=== PATIENT | male | born 1975 | race Caucasian/White ===

== ENCOUNTER → 2019-08-09 10:31 | Outpatient (CLI) | payer OTHER, SELFPAY ==
--- NOTE | ~2019-08-09 | US_ITS ---
US thyroid INDICATION: Possible thyroid nodule. Thyroiditis. TECHNIQUE: Real-time sonographic images of the thyroid gland were obtained. COMPARISON: No prior studies for comparison. FINDINGS: The right thyroid lobe measures 4.4 x 1.8 x 1.5 cm. The left thyroid lobe measures 3.9 x 1 .3 x 1 cm. There is heterogeneous echotexture and echogenicity throughout the thyroid gland. No discr ete nodules identified. Normal vascular flow is present. IMPRESSION: 1. Heterogeneous thyroid gland. No discrete mass. Reviewed, dictated and finalized at location B. [employer]
== END ==
PROVIDERS: PCP Internal Medicine; Visit Provider Internal Medicine
DX: E04.1 Nontoxic single thyroid nodule (principal)
CPT/HCPCS: 76536

== ENCOUNTER 2019-11-01 10:45 | Outpatient (CLI) | payer OTHER, SELFPAY ==
--- NOTE | ~2019-11-01 | XR_ITS ---
XR thoracic spine 3V 11/01/2019 11:10 Indication: Right flank pain Procedure: 3 views thoracic spine Comparison: No prior studies for comparison. Findings: Vertebral body heights are maintained. No fracture or traumatic malalignment. No paraspinal soft tissue abnormality. Vertebral body heights are maintained. No paraspinal soft tissue abnormalit y. Lung parenchyma is unremarkable. There is diffuse idiopathic skeletal hyperostosis (DISH) of the t horacic spine. Impression: 1: No acute abnormality of the thoracic spine. Reviewed, dictated and finalized at location A. Impression: 1: No acute abnormality of the thoracic spine.
== END 2019-11-01 10:46 | disposition home or self-care (01) ==
PROVIDERS: PCP Internal Medicine; Visit Provider Internal Medicine
DX: M54.14 Radiculopathy, thoracic region (principal)
CPT/HCPCS: 72072

== ENCOUNTER 2019-12-16 06:55 | Outpatient (CLI) | payer OTHER, SELFPAY ==
--- NOTE | ~2019-12-16 | MR_ITS ---
EXAMINATION: MR thoracic spine wo con DATE: 12/16/2019 08:28 INDICATION: Thoracic back pain. TECHNIQUE: Magnetic resonance imaging (MRI) of the thoracic spine was performed without intravenous c ontrast. Sagittal localizer T1-weighted FSE of the cervical spine was obtained. Thoracic spine sequen rober included sagittal T2-weighted FSE, sagittal T1-weighted FSE, sagittal STIR FSE, and axial T2-weig hted FSE. COMPARISON: Thoracic spine radiographs 11/01/2019 FINDINGS: Bone alignment is normal. Vertebral body heights are normal. There are hemangiomas in T2 an d T5 vertebral bodies. Intervertebral disc heights are normal. There are endplate osteophytes at many levels. At T1-T2, there is a central extrusion with mild central canal stenosis. There is multilevel mild facet joint osteoarthritis. No neural foraminal stenosis. The spinal cord signal intensity is n ormal. Partially visualized are cysts in the kidneys. IMPRESSION: 1. Mild thoracic spondylosis. Reviewed, dictated and finalized at location A.
== END 2019-12-16 06:56 | disposition home or self-care (01) ==
PROVIDERS: PCP Internal Medicine; Visit Provider Nurse Practitioner Family
DX: M47.894 Other spondylosis, thoracic region (principal)
CPT/HCPCS: 72146

== ENCOUNTER 2021-12-17 07:59 | Outpatient (CLI) | payer OTHER, SELFPAY ==
--- NOTE | ~2021-12-17 | MR_ITS ---
EXAMINATION: MR shoulder RT wo con DATE: 12/17/2021 08:38 INDICATION: Right shoulder pain and decreased range of motion TECHNIQUE: Magnetic resonance imaging (MRI) of the right shoulder was performed without intravenous c ontrast. Sequences included axial PD-weighted FS FSE, coronal oblique PD-weighted FS FSE, coronal obl ique T2-weighted FS FSE, sagittal PD-weighted FS FSE, and sagittal T1-weighted SE. COMPARISON: None. FINDINGS: Coracoacromial arch: The acromion undersurface is flat in morphology (type I). A small anterior subacromial spur at the in sertion of the coracohumeral ligament which appears mildly thickened. Mild acromioclavicular osteoart hritis. Rotator cuff: Thickening and mild increased signal of the distal 2-3 cm of the supraspinatus and infraspinatus tend ons consistent with moderate tendinopathy. The coracoacromial ligament appears to exert minimal mass effect upon the bursal side of the distal supraspinatus muscle belly along the medial margin of the r egion of tendinopathy where there is a small region of shallow bursal sided fraying. The teres minor tendon is normal. Mild subscapularis tendinopathy with small intrasubstance linear longitudinal split tear extending approximately 1 cm from the lesser tuberosity footplate between the fibers of the inf erior and middle thirds of the tendon. Normal rotator cuff muscle bulk and signal. Biceps tendon, glenoid labrum and glenohumeral cartilage: Mild tendinopathy without discrete tear of the intra-articular portion of the long head biceps tendon . There is a superior, anterior to posterior tear of the glenoid labrum (SLAP tear) at the 10:00-12:0 0 position of the posterior superior glenoid labrum. Mild nonuniform partial thickness cartilage loss with smooth chondral surface and without degenerative subchondral changes along portions of the tariq oid and humeral head. Fluid: Physiologic amount of fluid in the glenohumeral joint and biceps tendon sheath. No loose osteochondr al bodies. Small amount of fluid in the subacromial/subdeltoid bursa consistent with mild bursitis. Bones: Normal marrow signal with no edema, fracture or abnormal marrow replacing process. IMPRESSION: 1. Moderate supraspinatus and infraspinatus tendinopathy with small region of shallow bursal sided fr aying along the distal myotendinous junction of the supraspinatus tendon suspicious for subacromial i mpingement. 2. Mild subacromial/subdeltoid bursitis. 3. Mild subscapularis tendinopathy with small mild intrasubstance split tear. 4. Mild glenohumeral osteoarthritis with SLAP tear at the posterior superior glenoid labrum. 5. Mild tendinopathy of the intra-articular long head biceps tendon. Reviewed, dictated and finalized at location B. IMPRESSION: 1. Moderate supraspinatus and infraspinatus tendinopathy with small region of s hallow bursal sided fraying along the distal myotendinous junction of the supra spinatus tendon suspicious for subacromial impingement. 2. Mild subacromial/subdeltoid bursitis. 3. Mild subscapularis tendinopathy with small mild intrasubstance split tear. 4. Mild glenohumeral osteoarthritis with SLAP tear at the posterior superior gl enoid labrum. 5. Mild tendinopathy of the intra-articular long head biceps tendon.
== END 2021-12-17 08:00 | disposition home or self-care (01) ==
PROVIDERS: PCP Internal Medicine; Visit Provider Nurse Practitioner Family
DX: M19.011 Primary osteoarthritis, right shoulder (principal); M75.51 Bursitis of right shoulder; S43.431A Superior glenoid labrum lesion of right shoulder, initial encounter; X58.XXXA Exposure to other specified factors, initial encounter
CPT/HCPCS: 73221

== ENCOUNTER 2022-06-23 01:00 | Day surgery (SDC) | payer OTHER, SELFPAY ==
[2022-06-11 11:12] VITALS: BMI 36.3
--- NOTE | 2022-06-11 11:39 | PC.NURSE ---
Report to the Outpatient Waiting Room, entrance under the green pavilion located off [facility], at 0830 on 06-23-22. Planned Procedure Time: 1030. Time changes happen often and if your time is changed the preop area will call you the afternoon before. - You and your visitor will be asked to self-screen and do not enter if you have any COVID symptoms. - Only one visitor is requested with a max of two and NO children visitors are allowed at this time. - The patient visitor may be requested to leave or wait in car when not with patient due to distancing restrictions. - A mask is required within the hospital. Patients may have clear liquids (water, carbonated beverages, clear teas, apple juice) until 3 hours prior to surgery with a maximum of 20 ounces. 0730 - No food from midnight until time of surgery - Infants may have breast milk until 4 hours before surgery, infant formula 6 hours prior to surgery. - Children will be allowed to drink immediately following surgery. If applicable, please bring a bottle or sippy cup to assist with drinking. Juice, water, soda, and popsicles are readily available. For infants on formula, please bring formula the day of surgery. Pacifiers are allowed. Take the following medications with a SIP of water the morning of surgery: Trintellix, lamotrigine, levothryroxine Medications to discontinue per physician: Vitamins and supplements Date to take last dose: 06-20-22 Please no make-up, nail danish, hairspray, perfume, deodorant, or body powder the day of surgery. No jewelry (including any body piercings) or valuables the day of surgery, leave them at home. Please take a shower or bath the night before, or the morning of, surgery with an antibacterial soap. Wear comfortable, loose fitting clothing. (A button down shirt is recommended). Children are encouraged to wear pajamas. - Jewelry must be removed prior to entering the operating room. Rings and piercings that are not removed may be cut off. - The hospital will not accept responsibility for valuables. - Please leave all valuables, including medications, at home the day of surgery. If you are going home after surgery, a licensed log truck driver must drive you home. - NO public transportation without another adult if you receive anesthesia. - We recommend that an adult stay with you for 24 hours following discharge. - We also recommend that you do not drive, make important decision, drink alcoholic beverages, or take any drugs that were not prescribed by your health care provider for at least 24 hours after your discharge time. For Pediatric surgeries, we recommend two adults accompany the child home. Follow any additional instructions given to you from your surgeon. If you or anyone in your household have experienced Covid symptoms in the past week, please notify your surgeon or the nurse liaison at the phone number below for possible testing. Telephone instructions given to Yosvany Poon and asked if any additional questions and then verbalized understanding. Patient advised to call surgeon office or pre surgery nurse liaison [phone] if any additional questions.
[2022-06-23] VITALS (8 sets, daily range): BP systolic 118–146; BP diastolic 72–100; PULSE 60–68; RESP 12–18; TEMP 36.4–36.9; O2SAT 93–100
[2022-06-23] MEDS: ACETAMINOPHEN 500 MG TABLET 1000 MG PO (08:16)
[2022-06-23] MEDS: LACTATED RINGERS 1,000 ML 30 ML IV CONT ×2 (08:35→12:00)
[2022-06-23] MEDS: KETOROLAC 15 MG/ML VIAL (*BKC) IV PUSH (08:38)
--- NOTE | 2022-06-23 09:35 | WPDANESEPPF ---
Anes - Initial Pre Proc Eval Procedure: Operation Date: 06/23/22 10:30 Proposed Procedures p Right Shoulder Acromioplasty, Distal Clavicle Excision - Robert Wright MD Date/Time: 06/23/22 09:35 Surgeon: Robert Wright MD Pre Op Diagnosis: right AC arthritis and impingement Patient Data Age: 47 Gender: M Height: 1.85 m Weight: 129.4 kg Last Vital Signs Temp 36.9 C 06/23/22 08:21 Pulse 64 06/23/22 08:21 Resp 16 06/23/22 08:21 BP 129/80 06/23/22 08:21 Pulse Ox 99 06/23/22 08:21 O2 Del Method Room Air 06/23/22 08:21 Allergies Allergy/AdvReac Type Severity Reaction Status Date / Time No Known Allergies Allergy Verified 06/23/22 08:11 Home Medications Medication Instructions Recorded Confirmed Type levothyroxine 137 mcg capsule 137 mcg PO DAILY 01/15/22 06/18/22 History vortioxetine 20 mg tablet 20 mg PO DAILY 01/15/22 06/18/22 History (Trintellix) aripiprazole 2 mg tablet 2 mg PO HS 06/11/22 06/18/22 History cholecalciferol (vitamin D3) 125 125 mcg PO DAILY 06/11/22 06/18/22 History mcg (5,000 unit) tablet (Vitamin D3) multivit with minerals-iron 18 1 tablet PO DAILY 06/11/22 06/18/22 History mg-folic ac 400 mcg-vit K 25 mcg tablet (Adults Multivitamin) [id number]-other [id number] 1 cap PO DAILY 06/11/22 06/18/22 History oil 350 mg- 400 mg capsule risankizumab-rzaa 150 mg/mL 150 mg subcut [id number] 06/11/22 06/18/22 History subcutaneous pen injector (Skyrizi) vitamin B complex 1 tablet PO DAILY 06/11/22 06/18/22 History Patient hx anesthesia problems: none Family hx anesthesia problems: none Results Review: All pre-operative results and documents have been reviewed as part of the pre-operative evaluation. 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 impingement of right shoulder Surgical History Surgical History History of tonsillectomy Family History Family History Other Breast cancer Depression Diabetes mellitus Fibromyalgia Lupus Psoriasis Sjogrens syndrome Thyroid disorder Vertigo Social History Social History Smoking status: Never smoker Second hand tobacco smoke exposure: No Alcohol intake: current Alcohol use details: occasionally Substance use: current Substance use type: marijuana Living arrangements: with family Gender identity (if verbalized by the patient): Male Spiritual care concerns: No Anes - Eval Final PreProcedure Day of Procedure 06/23/22 09:35 Patient weight: obese Heart: regular rate and rhythm Lungs: clear to auscultation Airway: Mallampati scale class II Neurological: alert and oriented Last oral intake: >/= 8 hours ASA classification: III Emergent: no Anesthetic plan: proceed Anesthesia type and monitoring: general ETT and standard monitoring Results Review: All pre-operative results and documents have been reviewed as part of the pre-operative evaluation. Informed Consent: The patient's anesthetic plan and its attendant risks and benefits were discussed with the patient/family/POA. Questions were solicited and answers provided to the satisfaction of the patient/family/POA.
--- NOTE | 2022-06-23 10:00 | WPDHPUPDATE1 ---
History and Physical Update Update Date/Time: 06/23/22 10:00 History and Physical has been reviewed, including an updated exam of the patient. There are NO changes in the patient's condition. Risks, benefits, and alternatives have been discussed and questions answered. Patient agrees to proceed with procedure.
[2022-06-23] MEDS: ceFAZolin 3 GM/D5W 100 ML 100 ML IVPB (10:45)
--- NOTE | 2022-06-23 10:49 | WPDANESPNB ---
Anes - Peripheral Nerve Block Date/Time: 06/23/22 10:49 I have discussed with the patient/family/POA the placement of a peripheral nerve block for post-operative pain management, including associated risks, benefits, complications, and side effects. Alternative methods of post-operative analgesia were detailed. Questions were solicited and answers provided to the satisfaction of the patient/family/POA. Time-Out: A pre-procedural Time-Out was completed immediately before starting the procedure and confirmed: Patient Identification, Site, Procedure, Patient Position and the Availability of Requisite Equipment. Clinical Indications: Acute post-operative pain management requested by the operative surgeon. Nerve Block Insertion Note Anes-nerve block: interscalene right Patient position: supine Skin prep: chlorhexidine Needle: 22 gauge, stimulating, insulated echogenic needle. Needle length: 50 mm Technique: ultrasound Injectate: bupivacaine 0.5% with epi 5 mcg/ml (30cc- no epi) Observations: tolerated well Complications: none Procedure start time:: 1023 Procedure end time:: 102
[2022-06-23] MEDS: BUPIVACAINE/EPINEPHRINE 0.5% 10 ML VIAL INFILTRATE (11:18)
--- NOTE | 2022-06-23 11:57 | P.OP_ITS ---
Procedure Note - Detailed Date of Procedure 06/23/22 Pre-op Diagnosis right AC arthritis and impingement Post-op Diagnosis Same Procedure Performed Right shoulder acromioplasty with distal clavicle excision. Debridement rotator cuff. Surgeon Robert Wright MD [employer] Anesthesia General and Regional Description of Procedure Patient was identified and proper site identified. In the preop holding area the anesthesia team performed a right upper extremity block. He was then taken to the operating room and transferred to the or table taking care to pad the torso and extremities. After general anesthetic induction and intubation, he was put in a semi beach chair position in the usual manner for a right shoulder procedure. His head was secured taking care to neither rotate nor extend the head and neck. The right upper extremity was prepped and draped free in usual s terile fashion. The subcutaneous tissue in the area of the incision was injected with 10 cc of 0.25% Marcaine and epinephrine solution. An oblique anterior incision was made extending from the AC joint distally in line with the fibers of the deltoid. Subcutaneous tissue was sharply dissected down to the deltoid fascia. The deltoid was dissected off the anterior portion of the acromion in the distal end of the clavicle. A 2 cm split was made at the junction between the anterior and middle thirds of the deltoid. Using the microsagittal saw the last 8 mm of clavicle removed. The saw was also used to perform the acromioplasty and then the undersurface of the acromion was rasped smooth. there was an abundance of really thickened bursa overlying the rotator cuff which was sharply debrided allowing for assessment of the cuff. There was hyperemia along the greater tuberosity in no erosive tearing appreciated in the cuff. The wound was irrigated with sterile NaCl solution. The deltoid was repaired back to the acromion with 2. Ethibond suture passed through bone and the remainder of the deltoid repair carried out with 2. Vicryl. Subcutaneous tissue was reapproximated with 2. Strata fix and then tissue adhesive used for the skin. Sterile dressing was applied. There were no known intraoperative complications, and perioperative antibiotics were administered. Estimated Blood Loss 50 Drains No Packing No Pathology None sent Complications No immediate complications Condition Stable Disposition PACU [facility] Billing Surgery - Charge Forward: Surgery Billing ([id number], [id number])
== END 2022-06-23 13:56 | disposition home or self-care (01) ==
PROVIDERS: PCP Internal Medicine; Visit Provider Orthopaedic Surgery
PROC: (CPT 23420; principal; 2022-06-23 10:30)
DX: M19.011 Primary osteoarthritis, right shoulder (principal); M75.41 Impingement syndrome of right shoulder; G89.18 Other acute postprocedural pain; E06.3 Autoimmune thyroiditis; L40.9 Psoriasis, unspecified; E66.9 Obesity, unspecified; Z68.37 Body mass index [BMI] 37.0-37.9, adult; F12.90 Cannabis use, unspecified, uncomplicated
CPT/HCPCS: 23130; 23120; 64415; A4565; A9270; J0330; J0690; J1100; J1170; J1885; J2250; J2405; J2704; J2710; J3010; J7120

== ENCOUNTER 2022-07-30 10:00 | Outpatient (RCR) | payer OTHER, SELFPAY ==
[2022-06-25 08:04] VITALS: BP_SYST 70
--- NOTE | 2022-06-25 09:07 | PTOPEVAL1 ---
Assessment and note entered by Eugenia Serna, PT, DPT Evaluation Information Assessment Status Evaluation Diagnosis shoulder debridement Onset 06/23/22 Subjective Information Pt states overall his pain has been a little hard to manage. He also report only being able to sleep for 1-2 hours at a time. Reported Pain Level Pain Score 2: Self Report Assessment PT Clinical Summary Erick presents to therapy today for his initial evaluation with a diagnosis of a R shoulder rotator cuff debridement with cervical excision. Today he reports moderately controlled pain. He demonstrates passive shoulder abduction and flexion to ~70 deg, and ext rot to 0 deg. Skilled physical therapy services are indicated to progress through therapy goals, to improve active and passive ROM to equal to the uninvolved side, to manage pain, to improve strength, and to return to baseline function without limitations. Plan of Care Interventions Electrical Stimulation,Hot Pack/Cold Pack,Manual Therapy,Neuro Re-education,Patient/Caregiver Educati,Therapeutic Activities,Therapeutic Exercise PT Services Indicated Yes Treatment Frequency and 2x/wk for 5 wks Duration These treatments will address the objective and functional deficits as defined above. The patient will be advanced safely and appropriately in order for the patient to progress towards his/her prior level of function. Additional exercises will be introduced and as well as a comprehensive home exercise program upon discharge, if needed, ?to ensure carryover of functional gains achieved in the clinic. This treatment plan has been reviewed and agreement upon by the patient.
--- NOTE | 2022-07-07 14:04 | PCPTNOTE ---
Patient did not show up for scheduled appointment this date. Called and followed up with patient, he states got away from him. Confirmed his appointment on Thursday07/09/22.
[2022-07-30 10:02] VITALS: BP_SYST 70
--- NOTE | 2022-07-30 12:48 | PTOPPROG ---
Assessment and note entered by Eugenia Serna, PT, DPT Evaluation Information Assessment Status Progress Diagnosis shoulder debridement Onset 06/23/22 Subjective Information Pt states the last couple of days he has had a little bit more pain than usual. He thinks he is progressing well, he thinks his mobility is really improving and has been a little hesitant pushing the strength. Pt reports 65% improvement in overall symptoms. Assessment PT Clinical Summary Erick presents to therapy today for his progress report following 7 visits of skilled therapy to treat his R RTC debridement with clavicular excision. Today he demonstrates active ROM that is equal bilaterally. His strength is progressing well, grossly 4/5 on the R shoulder. He reports good compliance with his HEP and is progressing well towards his therapy and post op protocol goals. Continuation of skilled physical therapy services are indicated to continue progressing towards therapy and surgical goals, to return to baseline function, and to limit impairment. Plan of Care Interventions Electrical Stimulation,Hot Pack/Cold Pack,Manual Therapy,Neuro Re-education,Patient/Caregiver Educati,Therapeutic Activities,Therapeutic Exercise PT Services Indicated Yes Treatment Frequency and 2x/wk for 4 wks Duration These treatments will address the objective and functional deficits as defined above. The patient will be advanced safely and appropriately in order for the patient to progress towards his/her prior level of function. Additional exercises will be introduced and as well as a comprehensive home exercise program upon discharge, if needed, ?to ensure carryover of functional gains achieved in the clinic. This treatment plan has been reviewed and agreement upon by the patient.
--- NOTE | 2022-09-16 08:31 | PCPTNOTE ---
Patient did not show up for scheduled appointment this date.
--- NOTE | 2022-09-23 08:44 | PTOPDC ---
Assessment and note entered by Eugenia Serna, PT, DPT Evaluation Information Assessment Status Discharge - Pt Not Present Diagnosis shoulder debridement Onset 06/23/22 Subjective Information Called and spoke with patient as he does not have a scheduled re-evaluation. He states he has been full duty at work for about a week without any issues and does not feel he needs to return to therapy. He request to be discharged at this time. Assessment PT Clinical Summary He completed 8 visits of skilled therapy from 06/25 to 07/30/22. Plan of Care PT Services Indicated Yes
== END 2022-09-23 09:56 | disposition home or self-care (01) ==
LOC: ANHGOSHPT 10:00
PROVIDERS: PCP Internal Medicine; Visit Provider Orthopaedic Surgery
DX: Z48.89 Encounter for other specified surgical aftercare (principal); Z98.890 Other specified postprocedural states
CPT/HCPCS: 97110; 97112; 97140; 97161; 97530; 99199

== ENCOUNTER 2022-10-27 09:56 | Emergency (ER) | payer OTHER, SELFPAY ==
[2022-10-27 10:33] VITALS: BP 132/84; PULSE 67; RESP 16; TEMP 36.6; O2SAT 99
--- NOTE | 2022-10-27 11:26 | ED.URI ---
HPI - URI/Sore Throat General Chief Complaint: Upper Respiratory Infection Stated Complaint: sore throat,cough,congestion,diarrhea Time Seen by Provider: 10/27/22 11:26 Source: patient and RN notes reviewed Mode of arrival: ambulatory Limitations: no limitations History of Present Illness HPI Narrative: 47 y/o male presented for c/o sore throat, cough, and nasal congestion for about 4-5 days. Had one chill. States cough is productive of yellow sputum, and nose with white drainage. Also endorses diarrhea today and at onset. Continues to report body aches. Taking Tylenol for symptoms. Endorses sick contacts at work with unknown illness. Denies shortness of breath, wheezing, vomiting, fevers or chills. MD elicited complaint: cough Related Data Home Medications Medication Instructions Recorded Confirmed levothyroxine 137 mcg capsule 137 mcg PO DAILY 01/15/22 10/27/22 aripiprazole 2 mg tablet 2 mg PO HS 06/11/22 10/27/22 multivit with minerals-iron 18 1 tablet PO DAILY 06/11/22 10/27/22 mg-folic ac 400 mcg-vit K 25 mcg tablet (Adults Multivitamin) -aev-ibs-other [id number] 1 cap PO DAILY 06/11/22 10/27/22 oil 350 mg- 400 mg capsule risankizumab-rzaa 150 mg/mL 150 mg subcut [id number] 06/11/22 10/27/22 subcutaneous pen injector (Skyrizi) Allergies Allergy/AdvReac Type Severity Reaction Status Date / Time No Known Allergies Allergy Verified 10/27/22 10:34 Review of Systems Review of Systems: ROS per HPI [facility] Past Medical History Medical History Marta's disease Psoriasis Surgical History Surgical History Arthritis of right acromioclavicular joint DCE On June 23, 2022 History of tonsillectomy Subacromial impingement of right shoulder subacromial decompression June 23, 2022 Family History Family History Other Breast cancer Depression Diabetes mellitus Fibromyalgia Lupus Psoriasis Sjogrens syndrome Thyroid disorder Vertigo Social History Social History Smoking status: Never smoker Second hand tobacco smoke exposure: No Alcohol intake: current Alcohol use details: occasionally Substance use: current Substance use type: marijuana Living arrangements: with family Gender identity (if verbalized by the patient): Male Spiritual care concerns: No Exam Narrative: GENERAL: mildly Ill-appearing, nontoxic EYES: PERRLA, conjunctivae clear ENT: Mucous membranes moist. TMs pearly velasquez with dull light reflex bilaterally; no tragal tenderness. Oropharynx erythematous without lesions or exudate, no drooling, no hoarseness, no trismus, uvula midline. NECK: Supple. No lymphadenopathy CHEST: Clear to auscultation, breath sounds equal. No wheezing, rhonchi, rales, or stridor. No respiratory distress, speaks in full sentences. HEART: Regular rate and rhythm. No murmur heard. SKIN: Warm, dry, no rash. NEURO: Alert and oriented x3. PSYCH: Normal mood and affect Course Course Emergency Course: Patient is aware of diagnosis, understands and agrees to treatment plan. Anticipatory guidance given. Patient agrees to follow-up as directed and is aware of reasons to seek care at the emergency department. Portions of this record may have been created with voice recognition software Level of Care: Express Care Visit Vital Signs Vital signs: Vital Signs Temperature 97.9 F 10/27/22 10:33 Pulse Rate 67 10/27/22 10:33 Respiratory Rate 16 10/27/22 10:33 Blood Pressure 132/84 10/27/22 10:33 Pulse Oximetry 99 10/27/22 10:33 Oxygen Delivery Room Air 10/27/22 10:33 Temperature 97.9 F 10/27/22 10:33 Pulse Rate 67 10/27/22 10:33 Respiratory Rate 16 10/27/22 10:33 Blood Pressure 132/84 10/27/22 10:
== END 2022-10-27 12:19 | disposition home or self-care (01) ==
PROVIDERS: Emergency Provider Nurse Practitioner Family; PCP Internal Medicine
DX: J06.9 Acute upper respiratory infection, unspecified (principal); Z20.822 Contact with and (suspected) exposure to COVID-19; E06.3 Autoimmune thyroiditis; L40.9 Psoriasis, unspecified
CPT/HCPCS: 87081; 87426; 87880; 99213; C9803; G0463

== ENCOUNTER 2023-01-13 00:42 | Day surgery (SDC) | payer OTHER, SELFPAY ==
[2023-01-09 09:58] VITALS: BMI 35.6
[2023-01-13 09:25] VITALS: BP 130/67; PULSE 56; RESP 18; TEMP 36.2; O2SAT 100; BMI 35.1
[2023-01-13] MEDS: LACTATED RINGERS 1,000 ML 150 ML IV CONT (09:41)
--- NOTE | 2023-01-13 09:44 | WPDANESEPPF ---
Anes - Initial Pre Proc Eval Procedure: Operation Date: 01/13/23 11:00 Proposed Procedures p Colonoscopy - Adrian Nelson MD Date/Time: 01/13/23 09:44 Surgeon: Adrian Nelson MD Pre Op Diagnosis: Diarrhea Patient Data Age: 47 Gender: M Height: 1.88 m Weight: 124 kg Last Vital Signs Temp 36.2 C L 01/13/23 09:25 Pulse 56 L 01/13/23 09:25 Resp 18 01/13/23 09:25 BP 130/67 01/13/23 09:25 Pulse Ox 100 01/13/23 09:25 O2 Del Method Room Air 01/13/23 09:25 Allergies Allergy/AdvReac Type Severity Reaction Status Date / Time No Known Allergies Allergy Verified 01/13/23 09:32 Home Medications Medication Instructions Recorded Confirmed Type levothyroxine 137 mcg capsule 137 mcg PO DAILY 01/15/22 01/13/23 History aripiprazole 2 mg tablet 2 mg PO HS 06/11/22 01/13/23 History multivit with minerals-iron 18 1 tablet PO DAILY 06/11/22 01/13/23 History mg-folic ac 400 mcg-vit K 25 mcg tablet (Adults Multivitamin) [id number] 1 cap PO DAILY 06/11/22 01/13/23 History oil 350 mg- 400 mg capsule risankizumab-rzaa 150 mg/mL 150 mg subcut [id number] 06/11/22 01/13/23 History subcutaneous pen injector (Skyrizi) Patient hx anesthesia problems: none Family hx anesthesia problems: none Results Review: All pre-operative results and documents have been reviewed as part of the pre-operative evaluation. [facility] Past Medical History Medical History Marta's disease Psoriasis Surgical History Surgical History Arthritis of right acromioclavicular joint DCE On June 23, 2022 History of tonsillectomy Subacromial impingement of right shoulder subacromial decompression June 23, 2022 Family History Family History Other Breast cancer Depression Diabetes mellitus Fibromyalgia Lupus Psoriasis Sjogrens syndrome Thyroid disorder Vertigo Social History Social History Smoking status: Never smoker Second hand tobacco smoke exposure: No Alcohol intake: never Alcohol use details: occasionally Substance use: current Substance use type: marijuana Other substance usage details: gummies Living arrangements: with family Gender identity (if verbalized by the patient): Male Spiritual care concerns: No Anes - Eval Final PreProcedure Day of Procedure 01/13/23 09:44 Patient weight: obese Heart: regular rate and rhythm Lungs: clear to auscultation Airway: Mallampati scale class II Neurological: alert and oriented Last oral intake: >/= 8 hours ASA classification: III Emergent: no Anesthetic plan: proceed Anesthesia type and monitoring: general GIVS and standard monitoring Results Review: All pre-operative results and documents have been reviewed as part of the pre-operative evaluation. Informed Consent: The patient's anesthetic plan and its attendant risks and benefits were discussed with the patient/family/POA. Questions were solicited and answers provided to the satisfaction of the patient/family/POA.
--- NOTE | 2023-01-13 10:10 | PM.HPGS ---
History of Present Illness History of Present Illness Consent: Risks, benefits, and alternatives have been discussed and questions answered. Patient agrees to proceed with procedure. Chief complaint: colon screeening Narrative: Dionisio Poon is a 47 year old male here for first screening colonoscopy Review of Systems Constitutional: Constitutional: Denies headache(s) and Denies weakness Eyes: Eyes: Denies blurry vision ENT: Reports Normal hearing present, Denies headache(s) and Denies neck pain Cardiovascular: Cardiovascular: Denies chest pain and Denies dyspnea Respiratory: Respiratory: Denies dyspnea Gastrointestinal: Gastrointestinal: Reports no additional gastrointestinal complaints Genitourinary: Genitourinary: Denies dysuria Musculoskeletal: Musculoskeletal: Denies neck pain Integumentary/Breasts: Skin/Breast: Denies dry skin Neurologic: Reports Normal hearing present, Denies headache(s) and Denies weakness Psychiatric: Psychiatric: Denies anxiety Endocrine: Endocrine: Denies change in body appearance Hematologic/Lymphatic: Hematologic/Lymphatic: Denies easy bleeding Allergic/Immunologic: Allergic/Immunologic: Denies urticaria PMFSH Past Medical History Medical History (Updated 01/13/23 @ 10:11 by Adrian Nelson MD) Colon cancer screening Marta's disease Psoriasis Surgical History Surgical History Arthritis of right acromioclavicular joint DCE On June 23, 2022 History of tonsillectomy Subacromial impingement of right shoulder subacromial decompression June 23, 2022 Family History Family History Other Breast cancer Depression Diabetes mellitus Fibromyalgia Lupus Psoriasis Sjogrens syndrome Thyroid disorder Vertigo Social History Social History Smoking status: Never smoker Second hand tobacco smoke exposure: No Alcohol intake: never Alcohol use details: occasionally Substance use: current Substance use type: marijuana Other substance usage details: gummies Living arrangements: with family Gender identity (if verbalized by the patient): Male Spiritual care concerns: No Meds Home Medications and Allergies Home Medications Medication Instructions Recorded Confirmed Type levothyroxine 137 mcg capsule 137 mcg PO DAILY 01/15/22 01/13/23 History aripiprazole 2 mg tablet 2 mg PO HS 06/11/22 01/13/23 History multivit with minerals-iron 18 1 tablet PO DAILY 06/11/22 01/13/23 History mg-folic ac 400 mcg-vit K 25 mcg tablet (Adults Multivitamin) [id number] 1 cap PO DAILY 06/11/22 01/13/23 History oil 350 mg- 400 mg capsule risankizumab-rzaa 150 mg/mL 150 mg subcut [id number] 06/11/22 01/13/23 History subcutaneous pen injector (Skyrizi) Allergies Allergy/AdvReac Type Severity Reaction Status Date / Time No Known Allergies Allergy Verified 01/13/23 09:32 Vital Signs Vital Signs - 24 hr 01/13/23 09:25 Temperature 97.2 F L Pulse Rate 56 L Respiratory Rate 18 Blood Pressure 130/67 Pulse Oximetry 100 Oxygen Delivery Room Air Exam Const: General: comfortable and no acute distress HENMT: Face/Nose/Sinus: Normal nares present Eyes: General: appearance normal, both eyes and all related structures Neck: Neck: no JVD Resp: Auscultation: clear to auscultation bilaterally Cardio: Rate: regular rate Rhythm: regular rhythm GI: Inspection: non-distended GI Palp: Yes Soft to palpation Skin: General skin exam: normal color Neuro: General: gait normal Speech: normal speech Extrem: General: normal to inspection Psych: Mental Status: mental status grossly normal Assessment and Plan Assessment and plan (1) Colon cancer screening: Code(s): Z12.11 - Encounter for screening for
[2023-01-13 10:32] VITALS: BP 108/68; PULSE 56; RESP 18; O2SAT 96
[2023-01-13 10:42] VITALS: BP 108/68; PULSE 51; RESP 17; O2SAT 96
[2023-01-13 10:52] VITALS: BP 110/72; PULSE 58; RESP 20; O2SAT 98
== END 2023-01-13 10:59 | disposition home or self-care (01) ==
PROVIDERS: PCP Internal Medicine; Visit Provider Internal Medicine Gastroenterology
PROC: 0DJD8ZZ Inspection of Lower Intestinal Tract, Via Natural or Artificial Opening Endoscopic (ICD-10-PCS; CPT 45378; principal; 2023-01-13 11:00)
DX: Z12.11 Encounter for screening for malignant neoplasm of colon (principal); K63.5 Polyp of colon; E06.3 Autoimmune thyroiditis; L40.9 Psoriasis, unspecified; Z79.620 Long term (current) use of immunosuppressive biologic; E66.9 Obesity, unspecified; Z68.35 Body mass index [BMI] 35.0-35.9, adult; F12.90 Cannabis use, unspecified, uncomplicated
CPT/HCPCS: 45385; 88305; J2704; J7120

== ENCOUNTER 2024-10-28 09:20 | Outpatient (CLI) | payer OTHER, SELFPAY ==
--- NOTE | ~2024-10-28 | XR_ITS ---
Right Humerus Technique: AP and lateral views were obtained. Clinical History: Localized swelling or mass Findings: No fracture or dislocation is seen. Osseous alignment is anatomic. Visualized joint spaces are grossly preserved. Soft tissues are unremarkable. Impression: Unremarkable examination. No fracture or dislocation. Reviewed, dictated and finalized at [facility]. Impression: Unremarkable examination. No fracture or dislocation.
--- NOTE | ~2024-10-28 | XR_ITS ---
AP and lateral views of the left hip Clinical history: Psoriatic arthritis Findings: No acute fracture or dislocation is seen. Osseous alignment is anatomic. Left hip joint int act. Soft tissues are unremarkable. Impression: No significant abnormality is seen. Reviewed, dictated and finalized at location . Impression: No significant abnormality is seen.
== END 2024-10-28 09:21 | disposition home or self-care (01) ==
LOC: GOSHIMG 09:21
PROVIDERS: PCP Family Medicine; Visit Provider Family Medicine
DX: M25.552 Pain in left hip (principal); R22.31 Localized swelling, mass and lump, right upper limb
CPT/HCPCS: 73060; 73502

== ENCOUNTER 2024-10-28 09:41 | Outpatient (CLI) | payer OTHER, SELFPAY ==
--- OUTSIDE RECORDS SUMMARY | 2024-10-28 09:44 | XMS_ITS | Clinical Summary ---
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 Gender Identity Not on file Sexual Orientation Not on file Plan of Treatment Health Maintenance Due Date Last Done Comments Hepatitis C Virus (HCV) Screening 1977 TdaP Immunization 1977 Hepatitis B Immunization (1 of 3 - 19+ 3-dose series) 1996 Colonoscopy 2022 Colorectal Cancer Screening 2022 Influenza Immunization (#1) 2024 SARS-COV-2 Immunization ( season) 2024 Respiratory Syncytial Virus (RSV) Immunization (Adult) (1 - 1-dose 75+ series) 2052 Meningococcal Immunization (ACWY) Aged Out No longer eligible based on patient's age to complete this topic Pneumococcal Immunization Combined Aged Out No longer eligible based on patient's age to complete this topic Rotavirus Immunization Aged Out No lo nger eligible based on patient's age to complete this topic
[2024-10-28 16:07] LABS: Kit Draw Collected
== END 2024-10-28 09:42 | disposition home or self-care (01) ==
LOC: ANHGOSHLAB 09:42
PROVIDERS: PCP Family Medicine; Visit Provider Family Medicine
DX: F32.A Depression, unspecified (principal); Z79.899 Other long term (current) drug therapy; E66.9 Obesity, unspecified
CPT/HCPCS: 36415

== ENCOUNTER 2024-11-25 10:31 | Outpatient (CLI) | payer OTHER, SELFPAY ==
--- NOTE | ~2024-11-25 | US_ITS ---
EXAMINATION: US soft tissue UE RT DATE: 11/25/2024 10:40 INDICATION: Localized swelling, mass or lump at the right upper arm TECHNIQUE: Multiple grayscale and Doppler ultrasound images of the region of concern at the distal ri t upper arm were obtained. COMPARISON: None FINDINGS/IMPRESSION: 2.0 x 1.6 x 0.4 cm lenticular mass along the superficial muscular fascia which appears isoechoic and with similar echotexture and echogenicity to the surrounding subcutaneous fat which is most consisten t with and statistically most likely to represent a lipoma. Reviewed, dictated and finalized at location A.
== END 2024-11-25 10:32 | disposition home or self-care (01) ==
PROVIDERS: PCP Family Medicine; Visit Provider Family Medicine
DX: R22.31 Localized swelling, mass and lump, right upper limb (principal)
CPT/HCPCS: 76882